=== PATIENT | female | born 1960 | race Native Hawaiian/Other Pacific Islander ===

== ENCOUNTER 2022-05-22 00:15 | Inpatient (IN) | payer MEDICAID ==
[~2022-05-22] VITALS: Ht 160 cm; Wt 86.3 kg
[2022-05-22 01:39] LABS: Urine Bacteria NONE SEEN /hpf (None Seen); Urine Blood Negative /uL (Negative); Urine Specific Gravity 1.004 (1.001-1.035); Urine WBC <1 /hpf (0 - 5)
[2022-05-22 02:09] LABS: Basophils # (auto) 0.1 10 ^3/uL (0-0.2); Basophils % (auto) 1.1 % (0.0-2.0); Eosinophils # (auto) 0 10 ^3/uL (0-0.8); Eosinophils % (auto) 0.7 % (0.0-7.0); Hematocrit 40.1 % (36.0-46.0); Hemoglobin 13.6 g/dL (12.2-16.2); Lymphocytes # (auto) 2.6 10 ^3/uL (0.4-5.4); Mean Corpuscular Hemoglobin 31.6 pg (28.0-32.0); Mean Corpuscular Volume 92.9 fL (80.0-100.0); Monocytes # (auto) 0.5 10 ^3/uL (0-1.3); Monocytes % (auto) 9.2 % (0.0-12.0); Neutrophils # (auto) 1.8 10 ^3/uL (1.6-8.6); Nucleated Red Blood Cells % 0.1 %; Red Blood Cells 4.31 10^6/uL (4.0-5.20); Red Cell Distribution Width 13.1 % (11.8-14.3); White Blood Cell 4.9 10^3/uL (4.4-10.8)
[2022-05-22 02:23] LABS: Albumin 4.1 g/dL (3.4-5.0); BUN/Creatinine Ratio 12.2; Calcium 9.2 mg/dL (8.5-10.1); Potassium 3.6 mmol/L (3.5-5.1)
[2022-05-22 02:26] LABS: Bilirubin, Total 0.4 mg/dL (0.2-1.0); Total Protein 7.8 g/dL (6.4-8.2)
[2022-05-22] MEDS ORDERED: SODIUM CHLORIDE 0.9% 1,000 ML IV ONE (09:45)
[2022-05-22] MEDS ORDERED: ONDANSETRON HCL 4 MG/2 ML VIAL IV PRN (09:45)
[2022-05-22] MEDS: IBUPROFEN 600 MG TAB PO PRN (15:43)
[2022-05-22 22:00] VITALS: BP_SYST 105; BP_SYST 164; BP_DIAS 64; BP_DIAS 75
[2022-05-23] MEDS: IBUPROFEN 600 MG TAB PO PRN (01:18)
[2022-05-23] MEDS ORDERED: LISI20TA28 PO (01:47)
[2022-05-23] MEDS ORDERED: GABA100C9 PO (01:47)
[2022-05-23] MEDS ORDERED: LEVO25TA6 PO (01:47)
[2022-05-23] MEDS ORDERED: AML5T PO (01:47)
[2022-05-23] MEDS ORDERED: HYDR25TA4 PO (01:47)
[2022-05-23 05:00] VITALS: BP 143/77
[2022-05-23 09:00] VITALS: BP_SYST 144; BP_SYST 151; BP_DIAS 88; BP_DIAS 90; BP_DIAS 95
[2022-05-23] MEDS ORDERED: CHOL20007 OR (10:23)
[2022-05-23] MEDS ORDERED: HYDR25TA5 PO (10:23)
[2022-05-23 13:00] VITALS: BP_SYST 153; BP_SYST 156; BP_SYST 159; BP_DIAS 78; BP_DIAS 86; BP_DIAS 89
[2022-05-23 17:00] VITALS: BP 140/84
[2022-05-23 18:05] VITALS: BP 150/75
== END 2022-05-23 19:39 | disposition home health service (06) | DRG 204 ==
LOC: ER 00:15 → EDBD 00:15 → TELE 09:41 → TELE-WESTW 23:33
PROVIDERS: ADMIT Internal Medicine; ATTEND Internal Medicine
DX: R55 Syncope and collapse (principal); I10 Essential (primary) hypertension; S01.81XA Laceration without foreign body of other part of head, initial encounter; Z20.822 Contact with and (suspected) exposure to COVID-19; W07.XXXA Fall from chair, initial encounter; Z88.8 Allergy status to other drugs, medicaments and biological substances; Y93.89 Activity, other specified; Y92.89 Other specified places as the place of occurrence of the external cause; Y99.8 Other external cause status
CPT/HCPCS: 36415; 70450; 70551; 71045; 80053; 81001; 84484; 85025; 93005; 93306; 95819; 96360; G0378

== ENCOUNTER 2023-07-27 16:14 | Emergency (ER) | payer MEDICAID ==
[~2023-07-27] VITALS: Ht 160 cm; Wt 70.0 kg
[~2023-07-27 16:14] MED LIST: AML5T PO; CHOL20007 OR; GABA-1308 PO; HYDR25TA5 PO; LEVO25TA6 PO; LISI20TA56 PO
[2023-07-27 18:45] VITALS: BP 174/77; PULSE 62; RESP 18; TEMP 97.8; O2SAT 98
[2023-07-27] MEDS ORDERED: NAP500T PO (19:11)
[2023-07-27] MEDS ORDERED: KETOROLAC TROMETH 30 MG/ML 1ML VIAL IM ONE (19:15)
== END 2023-07-27 19:17 | disposition home or self-care (01) ==
LOC: ER 16:14
DX: S86.912A Strain of unspecified muscle(s) and tendon(s) at lower leg level, left leg, initial encounter (principal); I10 Essential (primary) hypertension; Z79.899 Other long term (current) drug therapy; Z88.5 Allergy status to narcotic agent; Z88.8 Allergy status to other drugs, medicaments and biological substances; X58.XXXA Exposure to other specified factors, initial encounter; Y93.89 Activity, other specified; Y92.89 Other specified places as the place of occurrence of the external cause; Y99.8 Other external cause status
CPT/HCPCS: 96372; 99283; J1885

== ENCOUNTER 2025-01-28 06:13 | Inpatient (IN) | payer OTHER, MEDICAID ==
[~2025-01-28] VITALS: Ht 153 cm; Wt 74.7 kg
[~2025-01-28 06:13] MED LIST changes: -AML5T PO; +ASPI-543 PO; +B COCAP10 OR; +COEN100C33 PO; +GLUC500T48 PO; -LEVO25TA6 PO; +OMEG-20 PO; +POLY335015 PO; +ROSU10TA16 PO
[2025-01-28] MEDS: ceFAZolin 2 GM/D5W50ml 50 ML IV ONE (06:41)
[2025-01-28] MEDS ORDERED: MORPHINE SULF PF 5 MG/10 ML VIAL ONE (06:53)
[2025-01-28] MEDS ORDERED: KETOROLAC TROMETH 30 MG/ML 1ML VIAL ONE (06:54)
[2025-01-28] MEDS: VANCOMYCIN HCL 1000 MG VL ONE (06:54)
[2025-01-28] MEDS: BUPIVACAINE 0.25% INJ 50ML VIAL ONE (06:56)
[2025-01-28] MEDS: TRANEXAMIC ACID 20 ML ONE (06:56)
[2025-01-28] MEDS: ROPIVACAINE 0.5% (5MG/ML) 20ML AMPULE IJ ONE (07:09)
[2025-01-28] MEDS ORDERED: fentaNYL CITRATE 100 MCG/2 ML VL ONE ×3 (07:18→08:58)
[2025-01-28] MEDS ORDERED: MIDAZOLAM HCL 2MG/2ML 2ml VIAL (1mg/ml) ONE ×2 (07:18→08:30)
[2025-01-28] MEDS ORDERED: PROPOFOL 10 MG/ML 20 ML IV ONE ×4 (07:28→09:11)
[2025-01-28] MEDS ORDERED: LIDOCAINE 2% (LOCAL ANESTH.) PF 5ml SDV ONE (07:28)
[2025-01-28] MEDS: CEFEPIME 1GM/ 50ML 50 ML IV ONE (08:02)
[2025-01-28] MEDS ORDERED: ONDANSETRON HCL 4 MG/2 ML VIAL ONE (08:18)
--- NOTE | 2025-01-28 09:27 | DVHOP2 ---
Operative Report - 2 Report Details Date: 01/28/25 Preop Diagnosis: Left knee degenerative arthritis Postop Diagnosis: Left knee degenerative arthritis Surgeon: Abbi Le MD Supervisor Firearms: Nyasia HODGSON Anesthesiologist: Akosua MCNAIR Anesthesia: Regional Drains: Lincoln closed wound suction Implant: DonJoy size five femur PS, size five tibial base plate, size 14 polyethylene Consent: The patient was informed of the risks and benefits of the procedure. These include but are not limited to complications of anesthesia, postoperative infection, incomplete relief of symptoms, recurrence of symptoms, damage to blood vessels, nerves and tendons, deep venous thrombosis, pulmonary embolism and possible need for repeat surgery in the future. Complications: None Estimated Blood Loss: 25 cc Fluids: See anesthesia record Findings: Denuded cartilage with eburnated bone, varus deformity Indications for Surgery: Left knee degenerative arthritis with severe pain and functional impairment despite nonoperative management Name of Procedure Performed Left total knee arthroplasty Procedure Details Procedure Details: The patient was brought to the operating room and placed on the table in the supine position after being given spinal anesthetic with adequate analgesia obtained. Regional block was given. Surgical timeout was performed verifying patient, laterality and procedure Preop patient received IV cefepime IV Ancef and IV tranexamic acid. Tourniquet was applied to the lower extremity. Extremity was elevated, exsanguinated Esmarch, and tourniquet inflated. Lower extremity was prepped and draped in sterile fashion. Midline incision was made followed by medial arthrotomy. I exposed the anterior medial and lateral tibial plateau and the anterior distal femur. Bovie and aqua mantis were used for hemostasis. I excised the anterior meniscal tissue with Bovie. I excised a portion of the fat pad with Bovie. The patella was everted and the knee flexed. I drilled the distal femur and suctioned the hole to reduce the risk of fat emboli. I inserted intramedullary guide with 5 degree valgus setting. I pinned the distal femoral cutting block anteriorly. Intramedullary patti was removed. Distal femoral cut was made and the block removed. I brought my attention to the tibia setting up the external cutting jig for the tibia paying attention to slope, rotation and varus valgus alignment. I set the depth and pinned the block. I used the external alignment patti to aid in checking alignment. Bone cut was made and bone removed releasing soft tissue attachments with Bovie. Cutting block removed. I then checked the extension gap and deemed adequate and removed the femur and tibia pins. I flexed the knee and applied the femoral sizing guide to the femur. I checked the size and external rotation setting at 90 degrees to Whitesides line and checking the epicondylar axis. I drilled the holes then removed the sizing guide and pin. I then tapped on the 4 in 1 cutting block and checked with the sarahy wing anteriorly to make sure that I would not notch then pinned the block. Cuts were made and the block and pins were removed. Bone was removed with curved osteotome. I used a rongeur to remove any remaining osteophytes at the femur and tibia. I then used a lamina fashion illustrator to open up the back alternating between the medial and lateral side. Any remaining meniscal tissue was excised with scalpel. I used curved osteotome, curette and rongeur to remove any posterior osteophytes. I prophylactically coagulated with aqua mantis. I then tapped on the template for the box cut and pinned it. Box cut was made and bone removed. Template and pin removed. I then tapped on the femoral trial. I then brought my attention back to the tibia sizing it. I used the external alignment patti to make sure that rotation and alignment were good. I made a Bovie shalini at the tibial tray shalini identifying rotation for later use. I tried various tibial polytrials. The patella tracked nicely without thumb pressure. I removed the trials. I pinned the tray and used the reamer and keel punch. The implants were brought into the field while bone preparation was started. I used both normal saline irrigation and the CarboJet to prepare the bone. Once cement was ready I applied cement to the tibial implant and tibial bone tapped it on and removed excess cement in usual fashion. In similar fashion I tapped on the femoral implant. I inserted the trial polyethylene and brought the knee into 30 degrees flexion. I irrigated with xperience irrigant. Once cement cured, I checked stability and range of motion as well as patella tracking. tourniquet was released and hemostasis maintained with aqua mantis. I inserted the polyethylene and again checked stability. I used a 2 grams of vancomycin half of which was placed deep and half superficial. I repaired the extensor mechanism with the knee in flexion with #1 Ethibond interrupted [id number]. Deep subcutaneous tissue was closed with 0 Vicryl. Superficial subcutaneous tissue was closed with 2-0 vicryl interrupted. Skin was closed with sharri. I then applied the [lincoln closed wound suction]. Patient tolerated the procedure well and was brought to recovery room in stable condition. Condition Stable Disposition Still a Patient ABBI LE MD Jan 28, 2025 09:27
[2025-01-28] MEDS ORDERED: ACETAMINOPHEN 325 MG TAB PO PRN (09:30)
[2025-01-28] MEDS ORDERED: oxyCODONE HCL 5MG TAB PO PRN ×2 (09:30)
[2025-01-28 09:40] VITALS: PULSE 99; RESP 14; O2SAT 100
[2025-01-28] MEDS ORDERED: PATIENTS OWN MEDICATION (Rosuvastatin Calcium (Crestor) 1 TAB) PO SCH (10:00)
[2025-01-28] MEDS: PREGABALIN 25 MG CAP PO SCH (10:00)
[2025-01-28] MEDS ORDERED: ONDANSETRON HCL 4 MG/2 ML VIAL IV ONE (10:00)
[2025-01-28] MEDS ORDERED: METOCLOPRAMIDE HCL 5MG/ml INJ 2ml VIAL IV ONE (10:00)
[2025-01-28] MEDS ORDERED: HYDROmorphone HCL 2 MG/ML VL/or syr IV PRN (10:00)
[2025-01-28] MEDS ORDERED: hydrALAZINE HCL 20 MG/ML VL IV PRN ×2 (10:00)
[2025-01-28] MEDS ORDERED: ePHEDrine SULFATE 50 MG/ML AMP IV PRN (10:00)
[2025-01-28] MEDS: HYDROmorphone HCL 2 MG/ML VL/or syr IV PRN (10:06)
[2025-01-28] MEDS: HYDROmorphone HCL 2 MG/ML VL/or syr ONE (10:21)
[2025-01-28] MEDS: ACETAMINOPHEN IV 1000 MG/100ML (10MG/ML) IV ONE (10:25)
--- NOTE | 2025-01-28 10:45 | DVH ---
CLINICAL INDICATION: Postop TECHNIQUE: XY L KNEE 3V XRAY Comparison: None FINDINGS/IMPRESSION: : There is no evidence of acute fracture or dislocation. Soft tissues are unremarkable. Left knee arthroplasty.
[2025-01-28] MEDS: KETOROLAC TROMETH 30 MG/ML 1ML VIAL IV ONE (10:46)
[2025-01-28] MEDS: KETOROLAC TROMETH 30 MG/ML 1ML VIAL IV SCH (12:00)
[2025-01-28 13:35] VITALS: BP 152/52; PULSE 84; RESP 17; TEMP 97.9; O2SAT 96
[2025-01-28] MEDS: ceFAZolin 2 GM/D5W50ml 50 ML IV SCH (14:35)
[2025-01-28] MEDS: D5W/LACTATED RINGERS 1,000 ML IV SCH (14:36)
[2025-01-28 15:45] VITALS: PULSE 84; RESP 17; O2SAT 96
[2025-01-28 17:00] VITALS: BP 128/66; PULSE 81; RESP 17; TEMP 97.7; O2SAT 92
[2025-01-28 20:00] VITALS: PULSE 84; PULSE 87; RESP 19; O2SAT 93
[2025-01-28 21:00] VITALS: BP 120/66; PULSE 84; RESP 19; TEMP 98.2; O2SAT 93
[2025-01-28] MEDS: ATORVASTATIN 20 MG TAB PO SCH (21:14)
[2025-01-28] MEDS: oxyCODONE HCL 5MG TAB PO PRN (21:15)
[2025-01-28] MEDS: POLYETHYLENE GLYCOL 17 GM PWDR PO SCH (21:15)
[2025-01-28] MEDS: SULFAMETHOX W/TRIMETH(800/160MG) DS TAB PO SCH (21:16)
[2025-01-29] VITALS (7 sets, daily range): BP systolic 110–141; BP diastolic 57–77; PULSE 84–93; RESP 16–19; TEMP 98–99.1; O2SAT 90–99
[2025-01-29] MEDS: oxyCODONE HCL 5MG TAB PO PRN (01:42)
[2025-01-29 07:59] LABS: Anion Gap 8 (5-15); Carbon Dioxide 25 mmol/L (20-31); Chloride 102 mmol/L (98-107); Potassium 3.9 mmol/L (3.5-5.1)
[2025-01-29 08:00] LABS: Basophils # (auto) 0 10 ^3/uL (0-0.2); Basophils % (auto) 0.5 % (0.0-2.0); Calcium 9.1 mg/dL (8.7-10.4); Eosinophils # (auto) 0 10 ^3/uL (0-0.8); Eosinophils % (auto) 0.7 % (0.0-7.0); Hematocrit 27.9 % (36.0-46.0); Hemoglobin 9.6 g/dL (12.2-16.2); Lymphocytes # (auto) 1.3 10 ^3/uL (0.4-5.4); Lymphocytes % (auto) 27.2 % (10.0-50.0); Mean Corpuscular Hemoglobin 29.3 pg (28.0-32.0); Mean Corpuscular Hgb Conc. 34.5 g/dL (32.0-36.0); Mean Corpuscular Volume 85.1 fL (80.0-100.0); Monocytes # (auto) 0.4 10 ^3/uL (0-1.3); Monocytes % (auto) 7.8 % (0.0-12.0); Neutrophils % (auto) 63.8 % (37.0-80.0); Nucleated Red Blood Cells % 0.1 %; Platelet Count (auto) 78 10^3/uL (140-450); Red Blood Cells 3.28 10^6/uL (4.0-5.20); Red Cell Distribution Width 13.7 % (11.8-14.3); White Blood Cell 4.6 10^3/uL (4.4-10.8)
[2025-01-29 08:02] LABS: Sodium 135 mmol/L (136-145)
[2025-01-29 08:05] LABS: BUN/Creatinine Ratio 14.8 (10.0-20.0); Blood Urea Nitrogen 13 mg/dL (9-23)
[2025-01-29 08:06] LABS: Glucose 136 mg/dL (74-106)
[2025-01-29] MEDS ORDERED: HYDR25TA4 PO (09:37)
[2025-01-29] MEDS ORDERED: GABA-1308 PO (09:37)
[2025-01-29] MEDS: ASPirin 81 mg TAB PO SCH (09:44)
[2025-01-29] MEDS: LISINOPRIL 20 MG TAB PO SCH (09:44)
[2025-01-29] MEDS: hydroCHLOROthiazide 25 MG TAB PO SCH (09:46)
[2025-01-29 09:57] LABS: Hepatitis B Surface Antibody Negative (Negative)
[2025-01-29 10:45] LABS: Hepatitis C Antibody Negative (Negative)
[2025-01-29] MEDS: ACETAMINOPHEN 325 MG TAB PO SCH (12:18)
--- NOTE | 2025-01-29 12:51 | DVHDS2 ---
Discharge Summary Date of Admission Jan 28, 2025 at 09:21 Date of Discharge: Jan 28, 2025 Labs/Diagnostic Data: Laboratory Results Test 01/29/25 06:45 01/28/25 15:44 White Blood Count 4.6 10^3/uL (4.4-10.8) Red Blood Count 3.28 10^6/uL (4.0-5.20) Hemoglobin 9.6 g/dL (12.2-16.2) Hematocrit 27.9 % (36.0-46.0) Mean Corpuscular Volume 85.1 fL (80.0-100.0) Mean Corpuscular Hemoglobin 29.3 pg (28.0-32.0) Mean Corpuscular Hemoglobin Concent 34.5 g/dL (32.0-36.0) Red Cell Distribution Width 13.7 % (11.8-14.3) Platelet Count 78 10^3/uL (140-450) Mean Platelet Volume 8.4 fL (6.9-10.8) Neutrophils (%) (Auto) 63.8 % (37.0-80.0) Lymphocytes (%) (Auto) 27.2 % (10.0-50.0) Monocytes (%) (Auto) 7.8 % (0.0-12.0) Eosinophils (%) (Auto) 0.7 % (0.0-7.0) Basophils (%) (Auto) 0.5 % (0.0-2.0) Neutrophils # (Auto) 3.0 10 ^3/uL (1.6-8.6) Lymphocytes # (Auto) 1.3 10 ^3/uL (0.4-5.4) Monocytes # (Auto) 0.4 10 ^3/uL (0-1.3) Eosinophils # (Auto) 0 10 ^3/uL (0-0.8) Basophils # (Auto) 0 10 ^3/uL (0-0.2) Nucleated Red Blood Cells 0.1 % Sodium Level 135 mmol/L (136-145) Potassium Level 3.9 mmol/L (3.5-5.1) Chloride Level 102 mmol/L (98-107) Carbon Dioxide Level 25 mmol/L (20-31) Anion Gap 8 (5-15) Blood Urea Nitrogen 13 mg/dL (9-23) Creatinine 0.88 mg/dL (0.550-1.02) Glomerular Filtration Rate Calc 72 mL/min (>90) BUN/Creatinine Ratio 14.8 (10.0-20.0) Serum Glucose 136 mg/dL (74-106) Calcium Level 9.1 mg/dL (8.7-10.4) Hepatitis B Surface Antibody Negative (Negative) Hepatitis C Antibody Negative (Negative) Other Laboratory Tests 01/29/25 06:45 Brief Hx & Hospital Course: Patient was brought to the hospital yesterday to undergo a total knee arthroplasty. She tolerated the procedure well without complications and was kept overnight for postoperative observation. She has remained medically stable denying any overnight events and reports some mild postoperative knee pain that is being well managed with the help of pain medication. Patient reports that she was able to get up and walk with the help of physical therapy and her walker and was able to get down to the nurse's station and back to her room with mild pain. Patient is otherwise feeling well denying any other complaint or concern during my evaluation and would like to go home. Condition at Discharge: Stable Final Diagnosis/Problems List Left knee degenerative arthritis Discharge Disposition: Home Discharge Instruct/Medications Diet: Regular Activity: See Comment Activity comment: Patient to be weight-bearing as tolerated with the assistance of a walker Follow Up/Referral: Patient to follow up with our office in 10-14 days for her 1st postoperative evaluation Medications: Rx sent via our outpatient EMR system Discharge Statement: "Patient was advised to return to the ER or call 911 if any headaches, dizziness, shortness of breath, chest pain, abdominal pain, bleeding, fevers, or worsening of medical condition. Patient was counseled about treatment plan, medications, possible side effects, patientverbalized understanding. All questions were answered to the best of my ability. This discharge took greater then 30 minutes in planning, reviewing documentation, counseling the patient, and discussing with other team members." ASSESSMENT ASSESSMENT Assessment Left knee degenerative arthritis PUSHPA MANCIA Jan 29, 2025 12:51
--- NOTE | 2025-01-29 12:53 | DVHPN2 ---
Progress Note - Dictate Date Seen: Jan 29, 2025 Medical Necessity Reason Pt with a Central, PICC or Fol: No Subjective Patient was lying comfortably in bed during my evaluation reports some postoperative knee pain that is being well managed with the help of pain medication. Patient reports that she was able to get up and walk with the help of physical therapy and her walker and was able to get down to the nurse's station and back to her bed with minimal pain. Patient is otherwise feeling well denying any complaints or concerns during my evaluation and would like to go home. vital signs Vital Sign Date Time Temp Pulse Resp B/P (MAP) Pulse Ox O2 Delivery O2 Flow Rate FiO2 01/29/25 09:50 122/65 01/29/25 08:35 98.7 91 16 94 98.7 01/29/25 08:00 Room Air* 0 21 Total Intake and Output 01/28/25 01/28/25 01/29/25 15:00 23:00 07:00 Intake Total 350 ml 1600 ml Balance 350 ml 1600 ml medications Current Medications Medications Dose Ordered Sig/Gutierrez Route Start Time Stop Time Status Last Admin Dose Admin Hydrochlorothiazide 37.5 mg MWF PO 01/29/25 10:00 Lisinopril 20 mg DAILY PO 01/28/25 10:00 01/29/25 09:50 20 MG Polyethylene Glycol 17 gm HS PO 01/28/25 22:00 Patient Own Medication 1 tab DAILY PO 01/28/25 10:00 UNV Dextrose/Lactated Ringer's 1,000 ml @ 100 mls/hr Q10H IV 01/28/25 09:30 01/28/25 14:36 100 MLS/HR Acetaminophen 650 mg Q4HP PRN PO 01/28/25 09:30 Acetaminophen 650 mg Q6HR PO 01/28/25 12:00 01/29/25 12:18 650 MG Ketorolac Tromethamine 15 mg Q6HR IV 01/28/25 12:00 02/02/25 11:59 01/29/25 12:18 15 MG Pregabalin 50 mg BID PO 01/28/25 10:00 01/28/25 10:00 50 MG Aspirin 81 mg BID PO 01/29/25 10:00 Trimethoprim/ Sulfamethoxazole 1 tab Q12HR PO 01/28/25 10:00 01/29/25 09:44 1 TAB Atorvastatin Calcium 40 mg HS PO 01/28/25 22:00 Oxycodone HCl 5 mg Q4HP PRN PO 01/28/25 13:30 01/28/25 21:15 5 MG Oxycodone HCl 10 mg Q4HP PRN PO 01/28/25 13:30 01/29/25 09:46 10 MG objective A&O x4 in no acute distress Knee range of motion grossly limited with pain on movement Rubin dressing clean, dry, intact, and maintaining suction No distal edema or calf tenderness to palpation Neurovascularly intact with cap refill less than 2 seconds laboratory and microbiology Laboratory Tests 01/29/25 06:45 Test 01/29/25 06:45 Range/Units Serum Glucose 136 H 74-106 mg/dL Assessment/Plan Patient to be discharged home and advised to remain weight-bearing as tolerated with the assistance of a walker. I instructed the patient to follow up with our office in 10-14 days for her 1st postoperative evaluation and to maintain her dressings clean, dry, intact, and maintaining suction. I also advised the patient to call our office if she has any questions or concerns. Rx sent via our outpatient EMR system. She understood and agreed. Plan discussed with: Patient PUSHPA MANCIA Jan 29, 2025 12:53
== END 2025-01-29 17:25 | disposition home or self-care (01) | DRG 470 ==
LOC: SUR 06:13 → OVERFLOW 09:21 → TELE-WESTW 13:39
PROVIDERS: ADMIT Orthopaedic Surgery; ATTEND Orthopaedic Surgery
PROC: 0SRD0J9 Replacement of Left Knee Joint with Synthetic Substitute, Cemented, Open Approach (ICD-10-PCS; principal; 2025-01-28 07:32)
DX: M17.12 Unilateral primary osteoarthritis, left knee (principal); G89.18 Other acute postprocedural pain
CPT/HCPCS: 36415; 73562; 80048; 85025; 86706; 86803; 86850; 86900; 86901; 97110; 97116; 97163; G0378; J0131; J1885; J2003; J2250; J2405; J2704; J3490